=== PATIENT | male | born 1995 | race Caucasian/White ===

== ENCOUNTER 2017-08-21 22:29 | Emergency (ER) | payer BC ==
--- NOTE | 2017-08-21 22:45 | ER Report ---
History and Physical Time Seen By MD: 22:45 Hx. of Stated Complaint: patient was riding bull, got thrown off, landed wrong, has pain in left side from shoulder down to elbow. HPI/ROS CHIEF COMPLAINT: Left-sided shoulder and arm pain after he thrown off of a bull HISTORY OF PRESENT ILLNESS: Patient is a 21-year-old male here status post being thrown off of a bull shortly prior to arrival at [place]. Patient reports significant pain in his shoulder, clavicle, mid humerus. Patient is neurovascularly intact at time of evaluation, able to move his fingers without issues. Patient denies neck pain, loss of consciousness, headache, confusion, CP , SOB, NV. REVIEW OF SYSTEMS: Constitutional: No fever, no chills. Eyes: No discharge. ENT: No sore throat. Cardiovascular: No chest pain, no palpitations. Respiratory: No cough, no shortness of breath. Gastrointestinal: No abdominal pain, no vomiting. Genitourinary: No hematuria. Musculoskeletal: No back pain. Skin: No rashes. Neurological: No headache, + left shoulder, + left arm pain Allergies: Coded Allergies: No Known Drug Allergies (Unverified , 08/21/17) Home Meds Active Scripts Oxycodone Hcl/Acetaminophen (PERCOCET 5-325 MG TABLET) 1 Each Tablet, 1 EACH PO Q4H Y for PAIN, #12 TAB 0 Refills Prov:YESI YARBROUGH DO 08/22/17 Hx Substance Use Disorder: No Hx Alcohol Use: Yes Constitutional Vital Sign - Last 24 Hours 08/21/17 08/21/17 08/21/17 08/21/17 22:36 22:44 22:59 23:00 Temp 97.6 Pulse 88 85 92 Resp 16 B/P (MAP) 148/100 134/110 (118) Pulse Ox 97 99 97 O2 Delivery Room Air Physical Exam General Appearance: The patient is alert, has no immediate need for airway protection and no signs of toxicity. + moderate distress due to pain Eyes: Pupils equal and round no pallor or injection. ENT, Mouth: Mucous membranes are moist. Respiratory: There are no retractions, lungs are clear to auscultation. Cardiovascular: Regular rate and rhythm. Gastrointestinal: Abdomen is soft and non tender, no masses, bowel sounds normal. Neurological: No focal neurological deficits Skin: Warm and dry, no rashes. Musculoskeletal: Neck is supple non tender. Extremities: + left shoulder deformity and pain with minimal ROM DIFFERENTIAL DIAGNOSIS: After history and physical exam differential diagnosis was considered for dislocation, fracture, sprain Medical Decision Making EKG/Imaging Imaging SHOULDER MIN 2 VIEWS LEFT HISTORY: Fall off a bull. Pain in left arm and shoulder. COMPARISON: None. Left humerus left clavicle x-rays were performed concurrently. TECHNIQUE: AP and scapular Y views of the left shoulder. FINDINGS: There is an anterior left glenohumeral dislocation. No fracture. No acromioclavicular joint separation. The visible left thorax is normal. IMPRESSION: 1. Anterior left glenohumeral dislocation. HUMERUS LEFT HISTORY: fall COMPARISON: None FINDINGS: Anterior-inferior glenohumeral dislocation. No humeral shaft fracture. IMPRESSION: 1. Left anterior-inferior glenohumeral dislocation. FOREARM LEFT HISTORY: Fall COMPARISON: None FINDINGS: No acute fracture. No radiopaque foreign body. IMPRESSION: 1. No acute osseous abnormality. ELBOW 2 VIEW LEFT HISTORY: fall COMPARISON: None FINDINGS: No acute fracture or dislocation. No evidence of osteochondral lesion. No joint effusion. No loose body. Soft tissues are normal. IMPRESSION: 1. No acute osseous abnormality. CLAVICLE LEFT HISTORY: fall COMPARISON: None FINDINGS: No clavicular fracture. The AC joint is normal. Anterior-inferior glenohumeral dislocation. IMPRESSION: 1. No clavicular fracture. 2. Anterior-inferior glenohumeral dislocation. CHEST PA AND LAT HISTORY: Fall off a bull. Pain in left arm and shoulder. COMPARISON: None. TECHNIQUE: PA and lateral views of the chest. FINDINGS: Pulmonary: Lungs are clear. There is no pneumothorax or pleural effusion. Cardiomediastinal: Cardiac and mediastinal silhouettes are within normal limits. Bones/soft tissues: There is an anteroinferior left shoulder dislocation. No acromioclavicular joint separation. The visible abdomen is normal. IMPRESSION: 1. No acute cardiopulmonary process. 2. Anterior left glenohumeral dislocation. SHOULDER MIN 2 VIEWS LEFT HISTORY: Postreduction. COMPARISON: Earlier same evening at 2312 hours. TECHNIQUE: AP and scapular Y views of the left shoulder. FINDINGS: The anterior glenohumeral dislocation has been reduced. There is no fracture. No acromioclavicular joint separation. IMPRESSION: 1. Reaction of the anterior left glenohumeral dislocation. ED Course/Re-evaluation ED Course Patient is a 21-year-old male here with complaints of left shoulder pain after being bucked off of his bull. X-ray imaging confirmed that there is no fracture however the left shoulder had a glenohumeral dislocation anteriorly. Patient was given Toradol and oxycodone. Manual reduction was performed successfully using longitudinal traction and mild external rotation with bicep, trapezius and scapular massage and was confirmed by x-ray imaging. Neurovascular exam remained intact. X-rays of the left arm showed no fractures or other dislocations. Patient was placed in a sling and advised to follow-up with orthopedics in a week. Patient voiced understanding. Procedure Manual reduction of the anterior inferior glenohumeral shoulder dislocation was performed successfully using longitudinal traction and mild external rotation with bicep, trapezius and scapular massage. Neurovascular exam was intact after the reduction and x-ray imaging confirmed successful reduction. Decision to Disposition Date: Aug 22, 2017 Decision to Disposition Time: 01:11 Depart Departure Latest Vital Signs Vital Signs Date Time Temp Pulse Resp B/P (MAP) Pulse Ox O2 Delivery O2 Flow Rate FiO2 08/21/17 23:00 134/110 (118) 08/21/17 22:59 92 97 08/21/17 22:36 97.6 16 Room Air Impression: Primary Impression: Dislocation, shoulder, anterior Condition: Improved Disposition: HOME OR SELF-CARE New Scripts Oxycodone Hcl/Acetaminophen (PERCOCET 5-325 MG TABLET) 1 Each Tablet 1 EACH PO Q4H Y for PAIN, #12 TAB 0 Refills Prov: YESI YARBROUGH DO 08/22/17 Patient Instructions: Shoulder Dislocation (ED) Additional Instructions: Please continue to wear sling for comfort. Please follow-up with orthopedics in one week. You may take 1 tablet of Percocet every 6 hours as needed for pain. YESI YARBROUGH DO Aug 21, 2017 22:45
[2017-08-21] MEDS ORDERED: KETOROLAC 60 MG/2 ML VIAL IM ONE (22:55)
[2017-08-21 23:00] VITALS: BP 134/110
--- NOTE | 2017-08-21 23:58 | RADIOLOGY IMAGING REPORT ---
FAC[place] [facility] [place] NAME: Andrea Matias : 1995 MR: [id number] V: [id number] EXAM DATE: ORDERING PHYSICIAN: YESI YARBROUGH TECHNOLOGIST: Location: Patient: Andrea Matias : 1995 Visit/Account:[id number] Date of Sevice: 08/21/2017 CHEST PA AND LAT HISTORY: Fall off a bull. Pain in left arm and shoulder. COMPARISON: None. TECHNIQUE: PA and lateral views of the chest. FINDINGS: Pulmonary: Lungs are clear. There is no pneumothorax or pleural effusion. Cardiomediastinal: Cardiac and mediastinal silhouettes are within normal limits. Bones/soft tissues: There is an anteroinferior left shoulder dislocation. No acromioclavicular joint separation. The visible abdomen is normal. IMPRESSION: 1. No acute cardiopulmonary process. 2. Anterior left glenohumeral dislocation. Report Dictated By: Ashley Jessica at 08/21/2017 11:53 PM Report E-Signed By: Ashley Jessica at 08/21/2017 11:55 PM WSN:[id number]
--- NOTE | 2017-08-21 23:59 | RADIOLOGY IMAGING REPORT ---
FACILITY: [facility] - [place] PATIENT NAME: Andrea Matias : 1995 MR: [id number] V: [id number] EXAM DATE: ORDERING PHYSICIAN: YESI YARBROUGH TECHNOLOGIST: Location: [facility] Patient: Andrea Matias : 1995 Visit/Account:[id number] Date of Sevice: 08/21/2017 SHOULDER MIN 2 VIEWS LEFT HISTORY: Fall off a bull. Pain in left arm and shoulder. COMPARISON: None. Left humerus left clavicle x-rays were performed concurrently. TECHNIQUE: AP and scapular Y views of the left shoulder. FINDINGS: There is an anterior left glenohumeral dislocation. No fracture. No acromioclavicular joint separation. The visible left thorax is normal. IMPRESSION: 1. Anterior left glenohumeral dislocation. Report Dictated By: Ashley Jessica at 08/21/2017 11:55 PM Report E-Signed By: Ashley Jessica at 08/21/2017 11:56 PM WSN:[id number]
--- NOTE | 2017-08-22 00:04 | RADIOLOGY IMAGING REPORT ---
FACILITY: [facility] - [place] PATIENT NAME: Andrea Matias : 1995 MR: [id number] V: [id number] EXAM DATE: ORDERING PHYSICIAN: YESI YARBROUGH TECHNOLOGIST: Location: [facility] Patient: Andrea Matias : 1995 Visit/Account:[id number] Date of Sevice: 08/21/2017 HUMERUS LEFT HISTORY: fall COMPARISON: None FINDINGS: Anterior-inferior glenohumeral dislocation. No humeral shaft fracture. IMPRESSION: 1. Left anterior-inferior glenohumeral dislocation. Report Dictated By: Evert Zuniga MD at 08/22/2017 12:01 AM Report E-Signed By: Evert Zuniga MD at 08/22/2017 12:01 AM WSN:[id number]
--- NOTE | 2017-08-22 00:06 | RADIOLOGY IMAGING REPORT ---
FACILITY: [facility] PATIENT NAME: Andrea Matias : 1995 MR: [id number] V: [id number] EXAM DATE: ORDERING PHYSICIAN: YESI YARBROUGH TECHNOLOGIST: Location: [facility] [place] Patient: Andrea Matias : 1995 Visit/Account:[id number] Date of Sevice: 08/21/2017 ELBOW 2 VIEW LEFT HISTORY: fall COMPARISON: None FINDINGS: No acute fracture or dislocation. No evidence of osteochondral lesion. No joint effusion. N o loose body. Soft tissues are normal. IMPRESSION: 1. No acute osseous abnormality. Report Dictated By: Evert Zuniga MD at 08/22/2017 12:02 AM Report E-Signed By: Evert Zuniga MD at 08/22/2017 12:02 AM WSN:[id number]
--- NOTE | 2017-08-22 00:06 | RADIOLOGY IMAGING REPORT ---
FACILITY: [facility] PATIENT NAME: Andrea Matias : 1995 MR: [id number] V: [id number] EXAM DATE: ORDERING PHYSICIAN: YESI YARBROUGH TECHNOLOGIST: Location: [facility] Patient: Andrea Matias : 1995 Visit/Account:[id number] Date of Sevice: 08/21/2017 CLAVICLE LEFT HISTORY: fall COMPARISON: None FINDINGS: No clavicular fracture. The AC joint is normal. Anterior-inferior glenohumeral dislocation . IMPRESSION: 1. No clavicular fracture. 2. Anterior-inferior glenohumeral dislocation. Report Dictated By: Evert Zuniga MD at 08/22/2017 12:03 AM Report E-Signed By: Evert Zuniga MD at 08/22/2017 12:03 AM WSN:[id number]
--- NOTE | 2017-08-22 00:06 | RADIOLOGY IMAGING REPORT ---
FACILITY: [facility] PATIENT NAME: Andrea Matias : 1995 MR: [id number] V: [id number] EXAM DATE: ORDERING PHYSICIAN: YESI YARBROUGH TECHNOLOGIST: Location: [facility] Patient: Andrea Matias : 1995 Visit/Account:[id number] Date of Sevice: 08/21/2017 FOREARM LEFT HISTORY: Fall COMPARISON: None FINDINGS: No acute fracture. No radiopaque foreign body. IMPRESSION: 1. No acute osseous abnormality. Report Dictated By: Evert Zuniga MD at 08/22/2017 12:02 AM Report E-Signed By: Evert Zuniga MD at 08/22/2017 12:02 AM WSN:[id number]
[2017-08-22] MEDS ORDERED: OXYC-865 PO (00:32)
[2017-08-22] MEDS ORDERED: oxyCODONE/ACETAMIN 5/325MG TH 2 TAB/BOTTLE PO ONE (00:35)
--- NOTE | 2017-08-22 01:00 | RADIOLOGY IMAGING REPORT ---
FACILITY: [facility] - [place] PATIENT NAME: Andrea Matias : 1995 MR: [id number] V: [id number] EXAM DATE: ORDERING PHYSICIAN: YESI YARBROUGH TECHNOLOGIST: Location: [facility] Patient: Andrea Matias : 1995 Visit/Account:[id number] Date of Sevice: 08/22/2017 SHOULDER MIN 2 VIEWS LEFT HISTORY: Postreduction. COMPARISON: Earlier same evening at 2312 hours. TECHNIQUE: AP and scapular Y views of the left shoulder. FINDINGS: The anterior glenohumeral dislocation has been reduced. There is no fracture. No acromiocla vicular joint separation. IMPRESSION: 1. Reaction of the anterior left glenohumeral dislocation. Report Dictated By: Ashley Jessica at 08/22/2017 12:54 AM Report E-Signed By: Ashley Jessica at 08/22/2017 12:56 AM WSN:[id number]
== END 2017-08-22 01:11 | disposition home or self-care (01) ==
LOC: ER 22:47
DX: S43.085A Other dislocation of left shoulder joint, initial encounter (principal); V80.018A Animal-rider injured by fall from or being thrown from other animal in noncollision accident, initial encounter; Y93.79 Activity, other specified sports and athletics; Y99.8 Other external cause status
CPT/HCPCS: 71046; 73000; 73030; 73060; 73070; 73090; 96372; 99283; J1885; L3982